=== PATIENT | male | born 1955 | race Caucasian/White ===

== ENCOUNTER → 2018-04-17 | Outpatient (CLI) | payer OTHER ==
--- NOTE | 2018-04-17 15:47 | REP ---
TRANSRECTAL ULTRASOUND PROSTATE WITH ULTRASOUND GUIDANCE FOR PROSTATE BIOPSY: Real-time sonographic evaluation of the prostate was performed. Transrectal probe was utilized. Size of the gland is 4.0 x 3.1 x 4.3 cm for a total volume of 27.3 mL. There appears to be a right side nodule 5 mm in diameter. Seminal vesicles are unremarkable. Ultrasound guidance is provided for Dr. Hernandez who performed ultrasound guided biopsy of the prostate. Electronically Signed by Artie Beck MD 04/17/2018 04:24 P
== END ==
LOC: M SMT PRO 13:04
PROVIDERS: ATTEND Urology
DX: C61 Malignant neoplasm of prostate (principal)
CPT/HCPCS: 76872; 76942; G0416

== ENCOUNTER → 2018-05-11 | Outpatient (CLI) | payer OTHER ==
[~2018-05-11] MED LIST: ISOVUE-370 76% 100ML VIAL (Q9967) As Ordered ONE
--- NOTE | 2018-05-11 10:09 | REP ---
Clinical: Prostate cancer. Technique: Axial contrast enhanced images from the lung bases to the pubic symphysis using 100 ml Isovue 370 intravenous contrast material with coronal and sagittal re-formations. Comparison: None. Findings: Lung bases are clear. Fatty infiltration to the liver suggested without focal hepatic lesion identified. Spleen, pancreas, gallbladder, bilateral adrenal glands are normal. Kidneys demonstrate age-related cortical thinning and benign lobulations without hydronephrosis or perinephric stranding. Evaluation of the enteric system demonstrates small hiatal hernia at the gastroesophageal junction. There is no evidence for bowel obstruction or acute inflammatory process. Scattered sigmoid diverticula noted without acute diverticulitis. The bladder is collapsed and grossly unremarkable. Prostate gland is heterogeneous with calcifications and scattered low density nodular changes. A few pelvic sidewall lymph nodes are identified measuring up to approximately 10 mm. No pelvic fluid or ascites. No significant intraperitoneal or retroperitoneal adenopathy. No free air. Abdominal aorta demonstrates atherosclerotic changes without aneurysm or dissection. The osseous structures demonstrate presumed moderate to advanced degenerative changes including bridging osteophytes at the right sacroiliac joint. Impression: 1. Heterogeneous appearance to the prostate gland with hypodense nodular changes. A few pelvic sidewall lymph nodes are identified measuring up to 10 mm and are nonspecific. 2. Presumed moderate to advanced degenerative osseous changes without obvious focal lytic or blastic/sclerotic lesions identified 3. Chronic-appearing changes as noted above. Electronically Signed by Rock Taylor MD 05/11/2018 10:01 A
--- NOTE | 2018-05-11 14:19 | REP ---
WHOLE BODY BONE SCAN: Following the intravenous administration of 21.5 mCi of technetium-99m MDP, patient's whole body is imaged in the anterior and posterior projections with additional oblique and lateral views obtained. Increased uptake is seen in the proximal left humerus asymmetrically. Differential diagnosis would include a bone lesion or uptake from prior trauma. There appears to be arthritic uptake at both shoulders, at the sternoclavicular joints, and scattered throughout the spine. There is arthritic uptake in the bilateral knees. There is no other compelling scintigraphic evidence of osseous metastases. Renal and bladder activity are seen. IMPRESSION: Increased uptake in the proximal left humerus predominantly in the proximal humeral shaft. This could be due to prior trauma, but a metastatic lesion could not be excluded. There are other areas of scattered arthritic uptake with no other compelling scintigraphic evidence of osseous metastases. Electronically Signed by Artie Beck MD 05/11/2018 04:03 P
== END ==
LOC: M RAD 09:21
PROVIDERS: ATTEND Urology
DX: C61 Malignant neoplasm of prostate (principal)
CPT/HCPCS: 74177; Q9967

== ENCOUNTER → 2018-05-17 | Outpatient (CLI) | payer OTHER ==
--- NOTE | 2018-05-18 01:27 | REP ---
Clinical: Prostate cancer. Technique: AP and lateral views of the left humerus. Findings: Mottled sclerotic changes are identified within the proximal humeral shaft. Without the given history of prostate cancer, differential diagnosis would include enchondroma and possible prior area of infarction. However given the patient's history of metastatic disease cannot definitively be excluded. Remainder examination demonstrates age-related changes. No acute fracture dislocation. Impression: Somewhat mottled sclerotic changes within the medullary cavity of the proximal humerus. Differential diagnosis includes but is not limited to enchondroma, old bony infarction, and metastatic disease. Electronically Signed by Rock Taylor MD 05/18/2018 01:19 A
== END ==
LOC: M SMT 13:47
PROVIDERS: ATTEND Urology
DX: C61 Malignant neoplasm of prostate (principal)

== ENCOUNTER → 2018-07-10 | Outpatient (CLI) | payer OTHER, SELFPAY ==
--- NOTE | 2018-07-11 10:47 | RADONC ---
RADIATION ONCOLOGY CONSULTATION NOTE DATE: 07/10/2018 CHART NUMBER: [id number] DIAGNOSIS: Prostate cancer. STAGE II C, T2b, N0, M0, Selene score 8 (4-4), grade group 4, PSA 13.79. ECOG PERFORMANCE STATUS: 0 CONSULTATION NOTE: Mr. Spann is a very pleasant 63-year-old white male with the diagnosis of what appears to be a stage II B, T2b, NO, MO poorly differentiated Sutherlin score 8 (4-4) adenocarcinoma of the prostate with a PSA level of 13.79 who is presenting to us today for consideration of definitive external beam radiation therapy with IMRT/IGRT. HISTORY OF PRESENT ILLNESS: The patient was in his usual state of health until routine PSA was done on 03/12/2018 and found to be 13.79. On 04/17/2018, the patient underwent prostatic needle biopsy and pathology revealed a Sutherlin score 8 (4-4) adenocarcinoma involving the right side. The patient has undergone initiation of hormonal therapy and is scheduled for placement of his fiducial markers in 2 weeks. He is now presenting for discussion of external beam radiation therapy. PAST MEDICAL HISTORY: The patient's past medical history is positive for diabetes. He had an umbilical hernia repair done and has a deviated septum. ALLERGIES: The patient has NO KNOWN DRUG ALLERGIES. SOCIAL HISTORY: The patient does not smoke cigarettes nor abuse alcohol. FAMILY HISTORY: The patient's family history is positive for a paternal uncle with some type of malignancy. REVIEW OF SYSTEMS: The patient's review of systems is positive for some headaches as well as urinary frequency. He also reports impotence. The remainder of the review of systems is noncontributory. He denies nausea, vomiting, fevers, chills, night sweats, diplopia, anxiety or depression, anorexia, weight loss, visual disturbances, chest pain, urinary or bowel difficulties, bone pain, or neurological problems. PHYSICAL EXAMINATION: The patient is a well-developed, well-nourished male in no acute distress. HEENT exam is normocephalic, atraumatic. Extraocular movements are intact. There is no palpable cervical, supraclavicular, infraclavicular, axillary, or inguinal lymphadenopathy present. Lungs are clear to auscultation and percussion. Heart has a regular rate and rhythm. Abdomen is benign with no hepatosplenomegaly, masses, or tenderness. Rectal examination reveals a normal anal sphincter tone. His prostate is smooth with no evidence of nodularity. Skeletal examination reveals no tenderness to pressure or percussion of the bony skeleton. Extremities reveal no clubbing, cyanosis, or edema. Neurologic exam is grossly intact, as is the remainder of the physical examination. MEDICAL NECESSITY: IMRT/IGRT is clinically indicated for the highly conformal dose planning required. The target volume is in close proximity to critical structures, such as the rectum, bladder, small bowel, and femoral heads. The volume of interest must be covered with narrow margins to adequately protect immediately adjacent structures. The plan requires interpretation of complex testing such as CT localization. As noted above, special planning (IMRT) and localizing (IGRT) is required and essential to maximally protect sensitive normal tissue structures which cannot be accomplished using conventional 3-dimensional planning. ASSESSMENT: Clearly the patient is a candidate for external beam radiation therapy and I have so informed him. I have discussed with the patient in detail the potential benefits as well as possible acute and chronic sequelae of external beam radiation therapy. We have discussed logistics of treatment planning, simulation and subsequent fractionated daily radiation treatments. In addition, I discussed with the patient alternate treatment such as surgery. The patient has already decided and does not wish to undergo surgery. We did talk about the benefits and drawbacks of each treatment modality. I am scheduling the patient for initiation of treatment planning approximately 2 weeks post placement of fiducial markers. Radiation treatments will follow subsequently. cc: MD Arun Hagan, DO
== END ==
LOC: M ONCR 14:00
PROVIDERS: ATTEND Radiology Radiation Oncology
DX: C61 Malignant neoplasm of prostate (principal); E11.9 Type 2 diabetes mellitus without complications; J34.2 Deviated nasal septum; R51 Headache; R35.0 Frequency of micturition

== ENCOUNTER → 2018-07-13 | Outpatient (CLI) | payer OTHER ==
[2018-07-13 15:08] LABS: BASO % 0.8 % (0.0-1.0); EOS # 0.2 10^3/uL (0.0-0.50); EOS % 4.7 % (0.0-3.0); HEMOGLOBIN 11.9 g/dl (13.5-17.5); LYMPH # 1.6 10^3/uL (1.5-4.5); LYMPH % 32.8 % (24.0-44.0); MEAN CORPUSCULAR HEMOGLOBIN 29.1 pg (27.0-33.0); MEAN CORPUSCULAR HGB CONC 32.2 g/dl (32.0-36.5); MEAN CORPUSCULAR VOLUME 90.5 fl (80.0-96.0); MONO # 0.4 10^3/uL (0.0-0.8); MONO % 7.5 % (0.0-5.0); NEUTROPHILS # 2.7 10^3/uL (1.8-7.7); NEUTROPHILS % 54.2 % (36.0-66.0); PLATELET COUNT, AUTOMATED 207 10^3/uL (150-450); RED BLOOD COUNT 4.09 10^6/uL (4.30-6.10); WHITE BLOOD COUNT 4.9 10^3/uL (4.0-10.0)
[2018-07-13 15:31] LABS: ALBUMIN 3.7 GM/DL (3.2-5.2); ALT/SGPT 23 U/L (12-78); BILIRUBIN,DIRECT 0.2 MG/DL (0.0-0.2); BILIRUBIN,TOTAL 0.6 MG/DL (0.2-1.0); BLOOD UREA NITROGEN 15 MG/DL (7-18); CALCIUM LEVEL 10.3 MG/DL (8.8-10.2); CARBON DIOXIDE LEVEL 29 MEQ/L (21-32); CHLORIDE LEVEL 99 MEQ/L (98-107); GLOMERULAR FILTRATION RATE > 60.0 (>49); GLUCOSE, FASTING 298 MG/DL (70-100); PHOSPHORUS LEVEL 3.2 MG/DL (2.5-4.9); POTASSIUM SERUM 4.4 MEQ/L (3.5-5.1); SODIUM LEVEL 135 MEQ/L (136-145); TOTAL PROTEIN 7.1 GM/DL (6.4-8.2)
[2018-07-13 19:28] LABS: CHLAMYDIA DNA AMPLIFICATION NEGATIVE (NEGATIVE); GC DNA AMPLIFICATION NEGATIVE (NEGATIVE)
== END ==
LOC: M WUC 14:04
PROVIDERS: ATTEND Physician Assistant
DX: R30.0 Dysuria (principal); N45.1 Epididymitis

== ENCOUNTER → 2018-07-23 | Outpatient (REF) | payer OTHER ==
[~2018-07-23] MED LIST changes: +ATEN25TA PO; +EXCETAB33 PO; +FENO145T13 PO; +FLOM0.4C39 PO; +GLIM4TAB PO; -ISOVUE-370 76% 100ML VIAL (Q9967) As Ordered ONE; +METF500T4 PO; +OMEP40CA2 PO; +SIMV40TA2 PO
== END ==
LOC: M LAB REF 17:19
PROVIDERS: ATTEND Urology
DX: N50.89 Other specified disorders of the male genital organs (principal); N39.0 Urinary tract infection, site not specified

== ENCOUNTER → 2018-07-23 | Outpatient (CLI) | payer OTHER ==
--- NOTE | 2018-07-23 16:29 | REP ---
SCROTAL SONOGRAPHY: HISTORY: Left testicular swelling. Testicular pain. FINDINGS: High-resolution bilateral scrotal sonography demonstrates no evidence of intratesticular mass lesion on either side. There is a moderate sized left-sided hydrocele. There is some scrotal wall edema. The testis on the left is displaced somewhat posteriorly by a scrotal wall complex fluid collection consistent with an abscess. This complex collection measures 5.8 x 2.6 x 5.4 cm. No intratesticular abscess is seen. The epididymides are bilaterally somewhat hyperemic, question epididymitis. Testicular Doppler flow is normal. Resistive indices are 0.70 on the right and 0.51 on the left. Right testis measures 3.6 x 1.9 x 2.1 cm. Left testicular dimensions are 3.3 x 2.0 x 2.3 cm. IMPRESSION: Complex hypoechoic fluid collection in the left scrotal wall consistent with abscess, 5.8 cm in greatest diameter. This displaces the left testis posteriorly. No intratesticular lesion is seen. Left-sided hydrocele is noted. Somewhat hyperemic epididymides are noted bilaterally. Electronically Signed by Ramesh Levin MD 07/23/2018 05:00 P
== END ==
LOC: M RAD 15:12
PROVIDERS: ATTEND Urology
DX: N50.89 Other specified disorders of the male genital organs (principal)

== ENCOUNTER 2018-07-24 14:57 | Day surgery (SDC) | payer OTHER ==
[~2018-07-24] VITALS: Ht 170.2 cm; Wt 97.5 kg
[~2018-07-24 14:57] MED LIST changes: -ATEN25TA PO; +BACITRACIN OINT 30GM As Ordered ONE; +BUPIVACAINE HCL 0.25% 30 ML VIAL As Ordered ONE; -EXCETAB33 PO; -FENO145T13 PO; -FLOM0.4C39 PO; -GLIM4TAB PO; -METF500T4 PO; -OMEP40CA2 PO; -SIMV40TA2 PO
[2018-07-24] MEDS ORDERED: ATEN25TA PO (16:12)
[2018-07-24] MEDS ORDERED: SIMV40TA2 PO (16:12)
[2018-07-24] MEDS ORDERED: FENO145T13 PO (16:12)
[2018-07-24] MEDS ORDERED: EXCETAB33 PO (16:12)
[2018-07-24] MEDS ORDERED: OMEP40CA2 PO (16:12)
[2018-07-24] MEDS ORDERED: GLIM4TAB PO (16:12)
[2018-07-24] MEDS ORDERED: FLOM0.4C39 PO (16:12)
[2018-07-24] MEDS ORDERED: METF500T4 PO (16:12)
[2018-07-24] MEDS ORDERED: METOCLOPRAMIDE INJ 10MG/2ML VIAL (J2765) As Ordered ONE (16:48)
[2018-07-24] MEDS ORDERED: MIDAZOLAM INJ 2 MG/2 ML VIAL (J2250) As Ordered ONE (16:48)
[2018-07-24] MEDS ORDERED: PROPOFOL 200 MG/20 ML VIAL As Ordered ONE (16:48)
[2018-07-24] MEDS ORDERED: LIDOCAINE 2% INJ 100 MG/5 ML SDV (FOR ANES.) As Ordered ONE (16:48)
[2018-07-24] MEDS ORDERED: fentaNYL 100 MCG/2 ML INJECTION (J3010) As Ordered ONE ×2 (16:48→17:31)
[2018-07-24] MEDS ORDERED: ONDANSETRON 4MG/2ML VIAL (J2405) As Ordered ONE (16:48)
[2018-07-24] MEDS ORDERED: ceFAZolin 2 GM/D5W 50 ML IV BAG (J0690 PER 500MG) As Ordered ONE (16:56)
[2018-07-24] MEDS ORDERED: LR 1,000 ML IV ONE (17:15)
[2018-07-24] MEDS ORDERED: ePHEDrine SULFATE 25 MG/5 ML(5MG/ML) SYRINGE As Ordered ONE (17:37)
[2018-07-24] MEDS ORDERED: fentaNYL 100 MCG/2 ML INJECTION (J3010) IV PRN (18:15)
[2018-07-24] MEDS ORDERED: LR 1,000 ML IV SCH (18:15)
[2018-07-24] MEDS ORDERED: ONDANSETRON 4MG/2ML VIAL (J2405) IV PRN (18:15)
[2018-07-24] MEDS ORDERED: MEPERIDINE INJ 25 MG/ML VIAL (J2175) IV PRN (18:15)
[2018-07-24] MEDS ORDERED: PERCOCET 5MG/325MG TAB PO PRN ×3 (18:15)
[2018-07-24] MEDS ORDERED: METOCLOPRAMIDE INJ 10MG/2ML VIAL (J2765) IV PRN (18:15)
--- NOTE | 2018-07-24 19:05 | RO ---
DATE OF PROCEDURE: 07/24/2018 PREPROCEDURE DIAGNOSIS: Left scrotal abscess. POSTPROCEDURE DIAGNOSIS: Left scrotal abscess. PROCEDURE: Incision and drainage of left scrotal abscess. SURGEON: Bryant Hernandez MD VAULT PERSON: None. ANESTHESIA: General. OPERATIVE INDICATIONS: This is a 63-year-old male who is known to our practice as he has been treated for prostate cancer. He recently was found to have left scrotal swelling and ultrasound was notable for approximately a 6 cm scrotal abscess. He was brought to the operating room today for treatment for this. DESCRIPTION OF PROCEDURE: The patient was brought to the operating room and general anesthesia was induced. Prophylactic antibiotics were infused. He was then placed in the supine position and prepped and draped in the usual sterile fashion. At this point, an approximately 3 cm transverse incision was made over the left hemiscrotum. This was taken down through the scrotal wall until there was immediate drainage of purulent material. Cultures were obtained from this to be sent for aerobic and anaerobic cultures. Once all of the pus had drained out, I put my finger in the abscess cavity to make sure that there were no loculations to be broken up. Once that was done, I thoroughly irrigated the abscess cavity with normal saline. Once that was done, hemostasis was obtained using electrocautery. I then inserted a [place] drain into the abscess cavity and stitched it to the skin using an #0 silk suture. Once that was done, dressings were applied and this marked the conclusion of the procedure. The patient was then awakened from anesthesia and transported to the recovery room in stable condition. Estimated blood loss was 5 mL. Complications: None. Specimens: Cultures of the left scrotal abscess. PLAN: The patient will followup in the clinic in a few days for [place] drain removal. I will keep him on antibiotics for 14 days.
[2018-07-24 20:00] VITALS: BP 142/77
== END 2018-07-24 20:20 | disposition home or self-care (01) ==
LOC: M SDC 14:57
PROVIDERS: ATTEND Urology
DX: N49.2 Inflammatory disorders of scrotum (principal); B96.20 Unspecified Escherichia coli [E. coli] as the cause of diseases classified elsewhere; I10 Essential (primary) hypertension; E11.9 Type 2 diabetes mellitus without complications; Z79.84 Long term (current) use of oral hypoglycemic drugs; Z79.899 Other long term (current) drug therapy; K21.9 Gastro-esophageal reflux disease without esophagitis; Z85.46 Personal history of malignant neoplasm of prostate
CPT/HCPCS: 55100; 87070; 87075; 87077; 87186; 87205; J0690; J2250; J2405; J2765; J3010

== ENCOUNTER → 2018-07-24 | Outpatient (CLI) | payer OTHER ==
[2018-07-24 15:06] LABS: HEMATOCRIT 36.6 % (42.0-52.0); HEMOGLOBIN 12.2 g/dl (13.5-17.5); MEAN CORPUSCULAR HEMOGLOBIN 29.8 pg (27.0-33.0); MEAN CORPUSCULAR HGB CONC 33.3 g/dl (32.0-36.5); MEAN CORPUSCULAR VOLUME 89.5 fl (80.0-96.0); PLATELET COUNT, AUTOMATED 217 10^3/uL (150-450); RED BLOOD COUNT 4.09 10^6/uL (4.30-6.10); WHITE BLOOD COUNT 7.3 10^3/uL (4.0-10.0)
[2018-07-24 15:17] LABS: INR 1.04; PROTHROMBIN TIME 13.7 SECONDS (12.1-14.4)
[2018-07-24 15:18] LABS: PARTIAL THROMBOPLASTIN TIME 28.6 SECONDS (25.4-37.6)
[2018-07-24 15:28] LABS: BLOOD UREA NITROGEN 12 MG/DL (7-18); CALCIUM LEVEL 9.8 MG/DL (8.8-10.2); CARBON DIOXIDE LEVEL 28 MEQ/L (21-32); CHLORIDE LEVEL 102 MEQ/L (98-107); CREATININE FOR GFR 0.86 MG/DL (0.70-1.30); GLOMERULAR FILTRATION RATE > 60.0 (>49); GLUCOSE, FASTING 188 MG/DL (70-100); POTASSIUM SERUM 4.3 MEQ/L (3.5-5.1); SODIUM LEVEL 136 MEQ/L (136-145)
== END ==
LOC: M LAB 14:28
PROVIDERS: ATTEND Urology
DX: Z01.818 Encounter for other preprocedural examination (principal); N49.2 Inflammatory disorders of scrotum

== ENCOUNTER → 2018-08-21 | Outpatient (CLI) | payer OTHER ==
[~2018-08-21] MED LIST changes: +ATEN25TA PO; -BACITRACIN OINT 30GM As Ordered ONE; -BUPIVACAINE HCL 0.25% 30 ML VIAL As Ordered ONE; +EXCETAB33 PO; +FENO145T13 PO; +FLOM0.4C39 PO; +GLIM4TAB PO; +METF500T4 PO; +OMEP40CA2 PO; +SIMV40TA2 PO
--- NOTE | 2018-08-21 12:47 | REP ---
Transrectal prostate sonography guidance: History: Prostate cancer. Findings: Transrectal sonographic guidance is provided to Dr. Hernandez who performed fiducial marker placement. Electronically Signed by Ramesh Levin MD 08/21/2018 05:23 P
== END ==
LOC: M SMT PRO 09:46
PROVIDERS: ATTEND Urology
DX: C61 Malignant neoplasm of prostate (principal)

== ENCOUNTER 2018-09-05 10:59 | Outpatient (RCR) | payer OTHER ==
--- NOTE | 2018-09-05 13:56 | RADONC ---
RADIATION ONCOLOGY SIMULATION NOTE DATE: 09/05/2018 CHART NUMBER: [id number] SIMULATION NOTE: Mr. Spann was taken to the CT scan for CT simulation of his prostate field. CT was accomplished without difficulty or discomfort. Radiation treatment planning is underway and radiation treatments will begin subsequently. An immobilization device was created without difficulty or discomfort. It will be used throughout the course of treatment. I was physically present throughout the course of CT simulation.
== END 2018-09-07 ==
LOC: M ONCR 10:59
PROVIDERS: ATTEND Radiology Radiation Oncology
DX: C61 Malignant neoplasm of prostate (principal)

== ENCOUNTER 2018-10-05 09:39 | Outpatient (RCR) | payer OTHER ==
--- NOTE | 2018-09-18 06:45 | RADONC ---
RADIATION ONCOLOGY PROGRESS NOTE DATE: 09/17/2018 CHART NUMBER: [id number] Mr. Spann is presently dose of 540 cGy to his prostate and is tolerating treatments quite well at this point with no complaints related to his radiation therapy. He is having no urinary or bowel difficulties, and no bone pain. REVIEW OF SYSTEMS: The patient's review of systems is noncontributory. He denies nausea, vomiting, fevers, chills, night sweats, diplopia, headaches, anxiety or depression, anorexia, weight loss, visual disturbances, chest pain, urinary or bowel difficulties, bone pain or neurological problems. PHYSICAL EXAMINATION: The patient's skin is in good condition with no evidence of moist or dry desquamation. The remainder of his physical exam remains unchanged. Mr. Spann is tolerating treatments quite well and radiation will continue as scheduled.
--- NOTE | 2018-09-25 07:16 | RADONC ---
RADIATION ONCOLOGY PROGRESS NOTE DATE: 09/24/2018 CHART #: [id number] Mr. Spann is presently at a dose of 1440 cGy to his prostate and is tolerating treatments quite well at this point with no complaints related to his radiation therapy. He is having no urinary or bowel difficulties and no bone pain. REVIEW OF SYSTEMS: The patient's review of systems is noncontributory. Denies nausea, vomiting, fevers, chills, night sweats, diplopia, headaches, anxiety or depression, anorexia, weight loss, visual disturbances, chest pain, urinary or bowel difficulties, bone pain, or neurological problems. PHYSICAL EXAMINATION: The patient's skin is in good condition with no evidence of radiation change present. There is no moist or dry desquamation. The remainder of his physical exam remains unchanged. Mr. Spann is tolerating treatments quite well and radiation will continue as scheduled.
--- NOTE | 2018-10-02 10:10 | RADONC ---
RADIATION ONCOLOGY PROGRESS NOTE DATE: 10/01/2018 CHART NUMBER: [id number] Mr. Spann with a diagnosis of adenocarcinoma of prostate is currently receiving local regional radiotherapy. He reports no specific complaints referable to his disease or to his treatments. His current dose is 2340 cGy of an anticipated 7920 cGy. REVIEW OF SYSTEMS: He specifically denies any nausea, vomiting, or significant diarrhea, dysuria, hematuria or blood per rectum. He was having some loose stools and the nurse has given him a pamphlet on a low residue diet which I feel he should follow. His energy level is such that he is able to maintain most day-to-day activities without any alteration of his lifestyle. No skin irritation is reported. The remainder of the review of systems is unchanged. EXAMINATION FINDINGS: Skin within the irradiated volume looks normal. The remainder of the physical examination is unchanged. IMPRESSION: Tolerating therapy well. PLAN: Treatments to continue.
== END 2018-10-07 ==
LOC: M ONCR 09:39
PROVIDERS: ATTEND Radiology Radiation Oncology
DX: C61 Malignant neoplasm of prostate (principal)

== ENCOUNTER → 2018-11-07 | Outpatient (RCR) | payer OTHER ==
--- NOTE | 2018-10-08 12:03 | RADONC ---
RADIATION ONCOLOGY PROGRESS NOTE DATE: 10/08/2018 CHART #: [id number] Mr. Spann with a diagnosis of prostate cancer is currently receiving local regional radiotherapy and his dose to date is 3240 cGy of an anticipated 7920 cGy. There are no complaints referable to his disease or to his treatments. REVIEW OF SYSTEMS: The patient denies any nausea, vomiting, diarrhea, dysuria, hematuria or blood per rectum. His energy level is excellent and he is able to maintain most day-to-day activities without any alteration of his lifestyle. Skin irritation is denied. The remainder of the review of systems is unchanged. EXAMINATION FINDINGS: The skin within the irradiated volume shows no evidence of erythema and certainly no focal desquamation. No palpable peripheral lymphadenopathy is appreciated in the cervical, supraclavicular, axillary or inguinal lymph node chains. The remainder of the physical examination is unchanged. IMPRESSION: Tolerating therapy well. PLAN: Treatments to continue. MTDD
--- NOTE | 2018-10-15 11:15 | RADONC ---
RADIATION ONCOLOGY PROGRESS NOTE DATE: 10/15/2018 CHART NUMBER: [id number] Mr. Spann is presently at a dose of 3600 cGy to his prostate and is tolerating treatments quite well at this point with no complaints related to his radiation therapy. He is having no urinary or bowel difficulties and no bone pain. The patient's review of systems is noncontributory. He denies nausea, vomiting, fevers, chills, night sweats, diplopia, headaches, anxiety or depression, anorexia, weight loss, visual disturbances, chest pain, urinary or bowel difficulties, bone pain, or neurological problems. PHYSICAL EXAMINATION: The patient's skin is in good condition with no evidence of radiation change present. There is no moist or dry desquamation. The remainder of his physical exam remains unchanged. Radiation is well tolerated and will continue as scheduled.
--- NOTE | 2018-10-22 14:52 | RADONC ---
RADIATION ONCOLOGY PROGRESS NOTE DATE: 10/22/2018 CHART NUMBER: [id number] Mr. Spann is presently at a dose of 4680 cGy to his prostate and is tolerating his treatments fairly well although he is complaining of urinary frequency. He says he urinates every hour. He does not have any new or unusual burning or discomfort with urination. He has no bowel symptoms or other problems. REVIEW OF SYSTEMS: The patient's review of systems is positive for urinary frequency, but is otherwise noncontributory. He denies nausea, vomiting, fevers, chills, night sweats, diplopia, headaches, anxiety or depression, anorexia, weight loss, visual disturbances, chest pain, urinary or bowel difficulties, bone pain or neurological problems. PHYSICAL EXAMINATION: The patient's skin is in good condition with no evidence of radiation change present. There is no moist or dry desquamation. The remainder of his physical exam remains unchanged. Mr. Spann is tolerating treatments quite well and radiation will continue as scheduled. I recommended that the patient drink more fluids, maybe including cranberry juice, and I have recommended the use of Pyridium. We will continue to follow him this week and if necessary can give him a short treatment break as well.
--- NOTE | 2018-10-31 06:52 | RADONC ---
RADIATION ONCOLOGY PROGRESS NOTE DATE: 10/30/2018 CHART #: [id number] Mr. Spann is presently at a dose of 5580 cGy to his prostate and is tolerating treatments quite well at this point with no significant difficulties related to his radiation therapy other than urinary and bowel frequency. REVIEW OF SYSTEMS: The patient's review of systems is positive for is frequent bathroom visits but is otherwise generally noncontributory. Denies nausea, vomiting, fevers, chills, night sweats, diplopia, headaches, anxiety or depression, anorexia, weight loss, visual disturbances, chest pain, urinary or bowel difficulties, bone pain, or neurological problems. PHYSICAL EXAMINATION: The patient's skin is in good condition with no evidence of moist or dry desquamation. The remainder of his physical exam remains unchanged. Mr. Spann is tolerating his treatments quite well and radiation will continue as scheduled.
--- NOTE | 2018-11-06 08:27 | RADONC ---
RADIATION ONCOLOGY PROGRESS NOTE DATE: 11/05/2018 Chart #: [id number] Mr. Spann is presently at a dose of 6480 cGy to his prostate and is tolerating treatments quite well at this point with no complaints related to his radiation therapy. He is having no significant urinary or bowel difficulties at this time. He did have some GI upset this weekend. REVIEW OF SYSTEMS: The patient's review of systems is positive for bowel issues with loose bowel movements but is otherwise noncontributory. Denies nausea, vomiting, fevers, chills, night sweats, diplopia, headaches, anxiety or depression, anorexia, weight loss, visual disturbances, chest pain, urinary or bowel difficulties, bone pain, or neurological problems. PHYSICAL EXAMINATION: The patient's skin is in good condition with no evidence of moist or dry desquamation. The remainder of his physical exam remains unchanged. Mr. Spann is tolerating treatments quite well and radiation will continue as scheduled.
[~2018-11-07] MED LIST changes: -FENO145T13 PO; +FENO145T7 PO; -GLIM4TAB PO; +GLIM4TAB5 PO; +METF-791 PO; -METF500T4 PO; -OMEP40CA2 PO; +OMEP40CA97 PO; -SIMV40TA2 PO; +SIMV40TA20 PO
== END ==
LOC: M ONCR 10-08 09:32
PROVIDERS: ATTEND Radiology Radiation Oncology
DX: C61 Malignant neoplasm of prostate (principal)

== ENCOUNTER 2018-11-15 09:39 | Outpatient (RCR) | payer OTHER ==
--- NOTE | 2018-11-12 10:29 | RADONC ---
RADIATION ONCOLOGY PROGRESS NOTE DATE OF SERVICE: 11/12/2018 DIAGNOSIS: Adenocarcinoma of the prostate. PROGRESS NOTE: Mr. Spann with a diagnosis of adenocarcinoma of the prostate is currently receiving local regional radiotherapy. His current dose is 7380 cGy of an anticipated 7920 cGy. He is tolerating his radiotherapy reasonably well, although he does have some issues with dysuria and frequency. His energy level is satisfactory. REVIEW OF SYSTEMS: He denies any nausea, vomiting, diarrhea. He does have some dysuria but denies blood per rectum or blood in the urine. His energy level is satisfactory, and he is able to maintain many day-to-day activities. He has only three more treatments to go to complete his entire prescribed dose of radiotherapy. The remainder of the review of systems is unchanged. EXAMINATION FINDINGS: No significant skin changes. Lymphatics: No palpable peripheral lymphadenopathy is appreciated. The remainder of the physical examination is unchanged. IMPRESSION: Tolerating therapy well with three more treatments to go to complete his entire prescribed dose of radiotherapy at 7920 cGy. Treatments to continue.
--- NOTE | 2018-11-19 09:15 | RADONC ---
RADIATION ONCOLOGY THERAPY TREATMENT SUMMARY NOTE: DATE: 11/15/2018 CHART NUMBER: [id number]. DIAGNOSIS: Prostate cancer. STAGE: II C, T2b, N0, M0, Selene score 8 (4+ 4), grade group 4, PSA 13.79. ECOG PERFORMANCE STATUS: 0 PLAN OF RADIOTHERAPY: Local regional radiotherapy for local regional control. RADIOTHERAPY STARTED: The radiotherapy started September 2018. RADIOTHERAPY COMPLETED: 11/15/2018 DOSE: The patient received a total of 7927 cGy administered in 44 fractions over 63 elapsed days. Prior to treatment delivery localization was accomplished upon our CT simulator and treatment portals defined by the use of multiple leaf collimators. The initial 45 cGy was administered to PTB1 including seminal vesicles prostate and lymphatic drainage sites. Thereafter, an additional 900 cGy were administered with reduced treatment portals to the prostate and seminal vesicles. A further reduction of an additional 2020 cGy were given to the prostate itself bringing the total dose to 7920 cGy. The treatments was treated at isocenter via IMRT/ IGRT with a 6 MV photon beam. STATUS OF TUMOR: There was neither evidence clinically of local regional progression during his course of radiotherapy or clinical evidence of distant metastatic spread. Tolerance: In general, he tolerated his therapy quite well with no significant untoward side effects denying any nausea, vomiting, diarrhea, dysuria, hematuria or blood per rectum. His energy level remained relatively constant and he was able to maintain most day-to-day activities without any alteration of his lifestyle. DISPOSITION: He was instructed to return to our clinic in approximately 1 month. He was also instructed to return to his referring physicians as per their directions and instructions. cc: MD Arun Hagan,
== END 2018-12-08 ==
LOC: M ONCR 09:39
PROVIDERS: ATTEND Radiology Radiation Oncology
DX: C61 Malignant neoplasm of prostate (principal)

== ENCOUNTER → 2018-12-11 | Outpatient (CLI) | payer OTHER ==
[~2018-12-11] MED LIST changes: +FENO145T13 PO; -FENO145T7 PO; +GLIM4TAB PO; -GLIM4TAB5 PO; +OMEP40CA2 PO; -OMEP40CA97 PO; +SIMV40TA2 PO; -SIMV40TA20 PO
== END ==
LOC: M LAB 09:57
PROVIDERS: ATTEND Radiology Radiation Oncology
DX: C61 Malignant neoplasm of prostate (principal)

== ENCOUNTER → 2018-12-12 | Outpatient (CLI) | payer OTHER ==
--- NOTE | 2018-12-13 09:05 | RADONC ---
RADIATION ONCOLOGY FOLLOWUP NOTE: DATE OF SERVICE: 12/12/2018 DIAGNOSIS: Adenocarcinoma of the prostate. PROGRESS NOTE: Mr. Spann with the diagnosis of adenocarcinoma of the prostate completed his definitive local regional radiotherapy on 11/15/2018. Since this time, he has been recuperating very nicely. He denies any specific nausea, vomiting, diarrhea, dysuria, hematuria or blood per rectum. He still has sometimes episodes when he has urinated and feels that he still needs to complete his urination and then 20-30 minutes later he will have some urine leak from his urethra. This is not an ongoing every day process. However, it has occurred several times and he is brought this to my attention. He feels that this tendency is decreasing overall. REVIEW OF SYSTEMS: He denies any nausea, vomiting, diarrhea, dysuria, hematuria or blood per rectum. His energy level is such and he is able to maintain most day-to-day activities which are normal for him. Skin irritation is denied. The remainder review of systems is unchanged. EXAMINATION FINDINGS: Skin within the irradiated volume shows neither erythema nor desquamation. Lymphatics: No palpable peripheral lymphadenopathy is appreciated in the cervical, supraclavicular, axillary or inguinal lymph node chains. Lungs are clear. Heart: Regular. Abdomen: Without evidence of hepatomegaly, masses, deep abdominal tenderness. Rectal was not performed at the patient's request because his PSA values are so low. Neurologic examination: Grossly physiologic. IMPRESSION: No clinical evidence of disease recurrence. PLAN: We will see him on a p.r.n. basis and he was advised to return to his referring physicians as per their directions and instructions. cc: MD Arun Hagan, DO
== END ==
LOC: M ONCR 09:59
PROVIDERS: ATTEND Radiology Radiation Oncology
DX: C61 Malignant neoplasm of prostate (principal)

== ENCOUNTER → 2018-12-14 | Outpatient (REF) | payer OTHER ==
[2018-12-14 18:50] LABS: APPEARANCE, URINE CLOUDY (CLEAR); BACTERIA, URINE AUTO 2+ (NEGATIVE); BILIRUBIN, URINE AUTO NEGATIVE (NEGATIVE); BLOOD, URINE BLOOD 2+ (NEGATIVE); COLOR, URINE YELLOW (YELLOW); GLUCOSE, URINE (UA) AUTO 3+ mg/dL (NEGATIVE); KETONE, URINE AUTO NEGATIVE (NEGATIVE); LEUKOCYTE ESTERASE, URINE AUTO 2+ (NEGATIVE); MUCUS, URINE SMALL (NEGATIVE); NITRITE, URINE AUTO NEGATIVE (NEGATIVE); PROTEIN, URINE AUTO 2+ mg/dL (NEGATIVE); RBC, URINE AUTO 79 /HPF (0-3); SPECIFIC GRAVITY URINE AUTO 1.018 (1.002-1.035); SQUAMOUS EPITHELIAL CELL UR AU 0 /HPF (0-6); UROBILINOGEN, URINE AUTO 0.2 mg/dL (0.0-2.0); WBC, URINE AUTO TNTC /HPF (0-3)
== END ==
LOC: M SMT 16:50
PROVIDERS: ATTEND Nurse Practitioner Family
DX: R39.198 Other difficulties with micturition (principal)

== ENCOUNTER → 2019-05-02 | Outpatient (CLI) | payer OTHER ==
[~2019-05-02] MED LIST changes: -FENO145T13 PO; +FENO145T7 PO; -GLIM4TAB PO; +GLIM4TAB5 PO; -OMEP40CA2 PO; +OMEP40CA97 PO; -SIMV40TA2 PO; +SIMV40TA20 PO
[2019-05-02 11:48] LABS: BASO % 0.9 % (0.0-1.0); EOS # 0.1 10^3/uL (0.0-0.5); EOS % 3.9 % (0.0-3.0); HEMATOCRIT 36.7 % (42.0-52.0); HEMOGLOBIN 12.1 g/dl (13.5-17.5); LYMPH # 0.6 10^3/uL (1.5-5.0); LYMPH % 19.3 % (24.0-44.0); MEAN CORPUSCULAR HEMOGLOBIN 30.3 pg (27.0-33.0); MONO # 0.3 10^3/uL (0.0-0.8); MONO % 8.5 % (0.0-5.0); NEUTROPHILS # 2.2 10^3/uL (1.5-8.5); NEUTROPHILS % 67.1 % (36.0-66.0); PLATELET COUNT, AUTOMATED 176 10^3/uL (150-450); RED BLOOD COUNT 3.99 10^6/uL (4.30-6.10); WHITE BLOOD COUNT 3.3 10^3/uL (4.0-10.0)
[2019-05-02 12:13] LABS: BLOOD UREA NITROGEN 16 MG/DL (7-18); CALCIUM LEVEL 9.8 MG/DL (8.8-10.2); CARBON DIOXIDE LEVEL 28 MEQ/L (21-32); CHLORIDE LEVEL 96 MEQ/L (98-107); CREATININE FOR GFR 1.15 MG/DL (0.70-1.30); FERRITIN 54 NG/ML (26-388); GLOMERULAR FILTRATION RATE > 60.0 (>49); GLUCOSE, FASTING 319 MG/DL (70-100); IRON (FE) 94 UG/DL (65-175); PERCENT SATURATION 23.9 % (19.7-50.0); POTASSIUM SERUM 4.7 MEQ/L (3.5-5.1); SODIUM LEVEL 134 MEQ/L (136-145); TOTAL IRON BINDING CAPACITY 394 UG/DL (250-450)
[2019-05-02 12:20] LABS: FOLATE 16.1 NG/ML; VITAMIN B12 LEVEL 399 PG/ML
== END ==
LOC: M LAB 09:49
PROVIDERS: ATTEND Internal Medicine
DX: E11.9 Type 2 diabetes mellitus without complications (principal)

== ENCOUNTER → 2019-05-03 | Outpatient (REF) | payer OTHER | LOC: M LAB REF 16:27 | PROVIDERS: ATTEND Internal Medicine | DX: D50.9 Iron deficiency anemia, unspecified (principal) ==

== ENCOUNTER → 2019-06-10 | Outpatient (CLI) | payer OTHER | LOC: M LAB 10:48 | PROVIDERS: ATTEND Urology | DX: C61 Malignant neoplasm of prostate (principal) ==

== ENCOUNTER 2019-08-06 18:45 | Emergency (ER) | payer OTHER ==
[~2019-08-06] VITALS: Ht 170.2 cm; Wt 104.7 kg
[2019-08-06 18:46] VITALS: BP 140/90
[2019-08-06] MEDS ORDERED: excedrin (18:54)
[2019-08-06] MEDS ORDERED: MAGIC MOUTHWASH SUSPENSION BTL SS STA (19:24)
[2019-08-06] MEDS ORDERED: AUGMENTIN 875 MG TAB PO ONE (19:30)
[2019-08-06] MEDS ORDERED: NORCO 5/325MG TABLET (BULK FOR ED) PO ONE (19:30)
[2019-08-06] MEDS ORDERED: HYDR-3713 PO (19:34)
[2019-08-06] MEDS ORDERED: ANBE20GE TOP (19:34)
[2019-08-06] MEDS ORDERED: MAGICMW SSP (19:34)
[2019-08-06] MEDS ORDERED: AUGM875T28 PO (19:34)
== END 2019-08-06 19:51 | disposition home or self-care (01) ==
LOC: M ED 18:45
DX: K04.6 Periapical abscess with sinus (principal); E11.9 Type 2 diabetes mellitus without complications; Z79.84 Long term (current) use of oral hypoglycemic drugs

== ENCOUNTER → 2019-08-26 | Outpatient (CLI) | payer OTHER ==
[~2019-08-26] MED LIST changes: +ANBE20GE TOP; +AUGM875T28 PO; +HYDR-3713 PO; +MAGICMW SSP; -METF-791 PO; +METF-838 PO; +excedrin
[2019-08-26 13:47] LABS: BLOOD UREA NITROGEN 17 MG/DL (7-18); CALCIUM LEVEL 9.9 MG/DL (8.8-10.2); CARBON DIOXIDE LEVEL 29 MEQ/L (21-32); CHLORIDE LEVEL 101 MEQ/L (98-107); CHOLESTEROL LEVEL 197 MG/DL (<200); CHOLESTEROL RISK RATIO 7.576 (<5); CREATININE FOR GFR 0.99 MG/DL (0.70-1.30); GLOMERULAR FILTRATION RATE > 60.0 (>49); GLUCOSE, FASTING 211 MG/DL (70-100); HDL CHOLESTEROL 26 MG/DL (>40); NON-HDL-C 171 MG/DL; POTASSIUM SERUM 4.4 MEQ/L (3.5-5.1); SODIUM LEVEL 137 MEQ/L (136-145); TRIGLYCERIDES LEVEL 938 MG/DL (<150)
[2019-08-26 15:24] LABS: HEMOGLOBIN A1c 9.8 %
== END ==
LOC: M LAB 11:58
PROVIDERS: ATTEND Internal Medicine
DX: E11.9 Type 2 diabetes mellitus without complications (principal)

== ENCOUNTER → 2019-09-05 | Outpatient (CLI) | payer OTHER ==
[~2019-09-05] MED LIST changes: +FIOR1CAP PO; +STEG5TAB PO
[2019-09-05 12:24] LABS: INR 0.98; PROTHROMBIN TIME 12.7 SECONDS (11.8-14.0)
[2019-09-05 12:25] LABS: BLOOD UREA NITROGEN 11 MG/DL (7-18); CALCIUM LEVEL 9.6 MG/DL (8.8-10.2); CARBON DIOXIDE LEVEL 27 MEQ/L (21-32); CHLORIDE LEVEL 100 MEQ/L (98-107); CREATININE FOR GFR 1.06 MG/DL (0.70-1.30); GLOMERULAR FILTRATION RATE > 60.0 (>49); GLUCOSE, FASTING 278 MG/DL (70-100); POTASSIUM SERUM 4.3 MEQ/L (3.5-5.1); PROSTATIC SPECIFIC AG MONITOR < 0.01 NG/ML (< 4.00); SODIUM LEVEL 137 MEQ/L (136-145)
[2019-09-05 12:25] LABS: PARTIAL THROMBOPLASTIN TIME 26.4 SECONDS (25.0-38.4)
[2019-09-05 12:35] LABS: HEMOGLOBIN 11.9 g/dl (13.5-17.5); MEAN CORPUSCULAR HEMOGLOBIN 30.6 pg (27.0-33.0); MEAN CORPUSCULAR HGB CONC 33.1 g/dl (32.0-36.5); MEAN CORPUSCULAR VOLUME 92.5 fl (80.0-96.0); PLATELET COUNT, AUTOMATED 168 10^3/uL (150-450); RED BLOOD COUNT 3.89 10^6/uL (4.30-6.10); WHITE BLOOD COUNT 3.5 10^3/uL (4.0-10.0)
--- NOTE | 2019-09-06 22:07 | ECGEPIP ---
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 Electronically Signed on 09-06-2019 22:06:56 EDT by Tomas Guillory
== END ==
LOC: M LAB 11:13
PROVIDERS: ATTEND Urology
DX: Z01.818 Encounter for other preprocedural examination (principal); N47.1 Phimosis; C61 Malignant neoplasm of prostate

== ENCOUNTER → 2019-09-09 | Outpatient (CLI) | payer OTHER | LOC: M LABSMTC 10:59 | PROVIDERS: ATTEND Anesthesiology | DX: Z01.818 Encounter for other preprocedural examination (principal); Z11.59 Encounter for screening for other viral diseases | CPT/HCPCS: C9803; U0003 ==

== ENCOUNTER → 2019-09-11 | Outpatient (CLI) | payer OTHER ==
--- NOTE | 2019-09-11 14:57 | REP ---
TWO-VIEW CHEST: REASON FOR EXAM: Preoperative testing. PRIORS: None. FINDINGS: The superior mediastinal structures are midline. The cardiac silhouette is unremarkable in size, shape, and position. The diaphragmatic surfaces of the lungs are regular, and the costophrenic angles are clear. The pulmonary martinez are clear. The imaged osseous structures are intact. IMPRESSION: There is no acute cardiopulmonary disease. Electronically Signed by Haroon Thompson DO 09/11/2019 03:23 P
== END ==
LOC: M RAD 12:19
PROVIDERS: ATTEND Urology
DX: Z01.818 Encounter for other preprocedural examination (principal); N47.1 Phimosis

== ENCOUNTER 2019-09-12 08:42 | Day surgery (SDC) | payer OTHER ==
[~2019-09-12] VITALS: Ht 170.2 cm; Wt 102.2 kg
[~2019-09-12 08:42] MED LIST changes: -FIOR1CAP PO; +LIDOCAINE 2% 100MG/5ML SDV (FOR ANES.) As Ordered ONE; +METOCLOPRAMIDE INJ 10MG/2ML VIAL (J2765 PER 1) As Ordered ONE; +MIDAZOLAM INJ 2MG/2ML VIAL (J2250 PER 1MG) As Ordered ONE; +ONDANSETRON 4MG/2ML VIAL As Ordered ONE; +fentaNYL 100 MCG/2 ML INJECTION (J3010) As Ordered ONE; +propofoL 200 MG/20 ML VIAL As Ordered ONE
[2019-09-12] MEDS ORDERED: BACITRACIN OINTMENT 30GM TUBE As Ordered ONE (08:57)
[2019-09-12] MEDS ORDERED: FIOR1CAP PO (09:11)
[2019-09-12] MEDS ORDERED: ceFAZolin SOD 2 GM in IV 1 EA IV ONE (09:15)
[2019-09-12] MEDS ORDERED: LR 1,000 ML IV ONE (09:45)
[2019-09-12] MEDS ORDERED: fentaNYL 100 MCG/2 ML INJECTION (J3010) As Ordered ONE (10:26)
--- NOTE | 2019-09-12 11:21 | ROOPDOC ---
[facility] Report Of Operation Report of Operation DATE OF PROCEDURE: 09/12/19 PREPROCEDURE DIAGNOSIS: Phimosis. POSTPROCEDURE DIAGNOSIS: Phimosis. OPERATIVE PROCEDURE: Circumcision. SURGEON: Geovanna Ramírez MD CERTIFIED PHYSICIAN ASSISTANT: None. ANESTHESIA: General. OPERATIVE INDICATIONS: This is a 64-year-old male with phimosis presenting to the operating room today for the above listed procedure. DESCRIPTION OF PROCEDURE: The patient was brought to the operating room and general endotracheal anesthesia was induced. Prophylactic antibiotics were infused. He was then placed in the supine position, and prepped and draped in the usual sterile fashion. At this point, circumcising incisions were made at the level of coronal sulcus with the foreskin completely pulled over the glans, and then also with the foreskin retracted down off of the glans. These circumcising incisions were then connected using electrocautery. All the foreskin between the circumcising incisions were then removed using electrocautery. Once that was done hemostasis was obtained using the coagulation current. Once satisfied with hemostasis, the skin on the penile shaft was reapproximated to the glans using interrupted #3-0 chromic sutures. Once that was done dressings were applied, including Tho and a Coban dressing, and marked the conclusion of the procedure. The patient was then awakened from anesthesia and transported to the recovery room in stable condition. ESTIMATED BLOOD LOSS: 10 mL. COMPLICATIONS: None. SPECIMENS: Foreskin. PLAN: The patient will followup in clinic in a approximately 2 weeks for a postoperative visit. GEOVANNA RAMÍREZ MD Sep 12, 2019 11:21
[2019-09-12] MEDS ORDERED: LR 1,000 ML IV SCH (11:30)
[2019-09-12] MEDS ORDERED: ONDANSETRON 4MG/2ML VIAL IV PRN (11:30)
[2019-09-12] MEDS ORDERED: PERCOCET 5MG/325MG TAB PO PRN ×2 (11:30)
[2019-09-12] MEDS ORDERED: fentaNYL 100 MCG/2 ML INJECTION (J3010) IV PRN (11:30)
[2019-09-12 11:55] VITALS: BP 150/70
== END 2019-09-12 12:48 | disposition home or self-care (01) ==
LOC: M SDC 08:42
PROVIDERS: ATTEND Urology
DX: N47.1 Phimosis (principal); I10 Essential (primary) hypertension; E11.9 Type 2 diabetes mellitus without complications; Z79.84 Long term (current) use of oral hypoglycemic drugs; Z79.899 Other long term (current) drug therapy; Z85.46 Personal history of malignant neoplasm of prostate
CPT/HCPCS: 54161; 88304; J0690; J2250; J2405; J2765; J3010

== ENCOUNTER → 2019-11-25 | Outpatient (CLI) | payer OTHER ==
[~2019-11-25] MED LIST changes: +FIOR1CAP PO; -LIDOCAINE 2% 100MG/5ML SDV (FOR ANES.) As Ordered ONE; -METOCLOPRAMIDE INJ 10MG/2ML VIAL (J2765 PER 1) As Ordered ONE; -MIDAZOLAM INJ 2MG/2ML VIAL (J2250 PER 1MG) As Ordered ONE; +NAPR-837 PO; -ONDANSETRON 4MG/2ML VIAL As Ordered ONE; -fentaNYL 100 MCG/2 ML INJECTION (J3010) As Ordered ONE; -propofoL 200 MG/20 ML VIAL As Ordered ONE
[2020-01-20 22:03] LABS: HEMOGLOBIN A1c 7.5 %
[2020-01-20 23:31] LABS: BLOOD UREA NITROGEN 13 MG/DL (7-18); CALCIUM LEVEL 9.8 MG/DL (8.8-10.2); CARBON DIOXIDE LEVEL 29 MEQ/L (21-32); CHLORIDE LEVEL 104 MEQ/L (98-107); CREATININE FOR GFR 0.93 MG/DL (0.70-1.30); GLOMERULAR FILTRATION RATE > 60.0 (>49); GLUCOSE, FASTING 182 MG/DL (70-100); POTASSIUM SERUM 4.2 MEQ/L (3.5-5.1); SODIUM LEVEL 139 MEQ/L (136-145)
[2020-01-20 23:32] LABS: ALBUMIN 3.6 GM/DL (3.2-5.2); ALT/SGPT 20 U/L (12-78); BILIRUBIN,DIRECT 0.1 MG/DL (0.0-0.2); BILIRUBIN,TOTAL 0.3 MG/DL (0.2-1.0); CHOLESTEROL LEVEL 198 MG/DL (<200); CHOLESTEROL RISK RATIO 6.187 (<5); CPK CREATINE PHOSPHOKINASE 44 U/L (39-308); HDL CHOLESTEROL 32 MG/DL (>40); NON-HDL-C 166 MG/DL; TOTAL PROTEIN 6.9 GM/DL (6.4-8.2); TRIGLYCERIDES LEVEL 507 MG/DL (<150)
== END ==
LOC: M LAB 10:53
PROVIDERS: ATTEND Internal Medicine
DX: E11.9 Type 2 diabetes mellitus without complications (principal); E78.2 Mixed hyperlipidemia

== ENCOUNTER 2019-12-30 12:51 | Emergency (ER) | payer OTHER ==
[~2019-12-30] VITALS: Ht 170.2 cm; Wt 101.8 kg
[~2019-12-30 12:51] MED LIST changes: -NAPR-837 PO
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
[2019-12-30] MEDS ORDERED: NAPR-837 PO (14:44)
[2019-12-30 14:48] VITALS: BP 137/72
== END 2019-12-30 14:50 | disposition home or self-care (01) ==
LOC: M ED 12:51
DX: S42.002A Fracture of unspecified part of left clavicle, initial encounter for closed fracture (principal); V49.40XA Driver injured in collision with unspecified motor vehicles in traffic accident, initial encounter; Y92.9 Unspecified place or not applicable; Y93.9 Activity, unspecified; Y99.9 Unspecified external cause status; M75.92 Shoulder lesion, unspecified, left shoulder; E11.9 Type 2 diabetes mellitus without complications; Z79.84 Long term (current) use of oral hypoglycemic drugs; Z79.899 Other long term (current) drug therapy

== ENCOUNTER → 2020-01-22 | Outpatient (CLI) | payer OTHER ==
[~2020-01-22] MED LIST changes: +NAPR-837 PO
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
== END ==
LOC: M RAD 07:37
PROVIDERS: ATTEND Internal Medicine
DX: S06.0X0A Concussion without loss of consciousness, initial encounter (principal); X58.XXXA Exposure to other specified factors, initial encounter; Y92.89 Other specified places as the place of occurrence of the external cause; Y93.9 Activity, unspecified; Y99.9 Unspecified external cause status

== ENCOUNTER → 2020-01-24 | Outpatient (CLI) | payer OTHER ==
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
== END ==
LOC: M RAD 06:32
PROVIDERS: ATTEND Internal Medicine
DX: S42.002A Fracture of unspecified part of left clavicle, initial encounter for closed fracture (principal); X58.XXXA Exposure to other specified factors, initial encounter; Y92.9 Unspecified place or not applicable; M47.812 Spondylosis without myelopathy or radiculopathy, cervical region; V87.9XXA Person injured in other specified (collision)(noncollision) transport accidents involving nonmotor vehicle (traffic), initial encounter

== ENCOUNTER → 2020-01-27 | Outpatient (CLI) | payer OTHER ==
--- NOTE | 2020-01-27 10:06 | REP ---
INDICATION: CONCUSSION, FRACTURE OF LEFT CLAVICLE. COMPARISON: 12/30/2027 x-ray TECHNIQUE: Coronal oblique T1 and fat suppressed T2. Sagittal oblique fat suppressed T2. Axial [id number] and T2 FLASH. FINDINGS: T2 hyper signal is seen within the acromioclavicular joint along with T2 hyper signal within the distal clavicle. The cortical margin of the distal clavicle is irregular. The acromion process is type 2 with a spur arising from the inferior surface of the acromion process at the acromioclavicular joint. Patchy T2 hyper signal is seen throughout the supraspinatus tendon without supraspinatus muscular 0 tendinous retraction. There is supraspinatus muscle atrophy. The biceps tendon resides within the bicipital groove. Slight linear hyper signal changes are seen in the superior labrum. There is no glenohumeral joint effusion. There is a tiny amount of fluid in the subcoracoid recess. There is no sravan cortical humeral or coracoacromial ligamentous thickening. There is a mixed signal proximal humeral intramedullary bone lesion. IMPRESSION: 1. Distal clavicle fracture with marrow edema and fluid within the AC joint. 2. Supraspinatus tendonitis/tendinosis with atrophy of the supraspinatus muscle. 3. Possible labral tear difficult to evaluate without shoulder MRI arthrography. 4. Proximal humeral enchondroma. 5. Other findings as described above. <Electronically signed by Haroon Thompson > 01/27/20 1002
== END ==
LOC: M RAD 07:35
PROVIDERS: ATTEND Internal Medicine
DX: S42.002A Fracture of unspecified part of left clavicle, initial encounter for closed fracture (principal); X58.XXXA Exposure to other specified factors, initial encounter; Y92.89 Other specified places as the place of occurrence of the external cause; Y93.9 Activity, unspecified; Y99.9 Unspecified external cause status

== ENCOUNTER → 2020-02-26 | Outpatient (CLI) | payer OTHER ==
[2020-02-26 11:30] LABS: BASO % 1.1 % (0.0-1.0); EOS # 0.1 10^3/uL (0.0-0.5); EOS % 3.2 % (0.0-3.0); HEMATOCRIT 36.5 % (42.0-52.0); HEMOGLOBIN 11.6 g/dl (13.5-17.5); LYMPH # 0.6 10^3/uL (1.5-5.0); LYMPH % 19.9 % (24.0-44.0); MEAN CORPUSCULAR HEMOGLOBIN 28.5 pg (27.0-33.0); MEAN CORPUSCULAR HGB CONC 31.8 g/dl (32.0-36.5); MEAN CORPUSCULAR VOLUME 89.7 fl (80.0-96.0); MONO # 0.2 10^3/uL (0.0-0.8); MONO % 8.2 % (0.0-5.0); NEUTROPHILS # 1.9 10^3/uL (1.5-8.5); NEUTROPHILS % 66.9 % (36.0-66.0); PLATELET COUNT, AUTOMATED 156 10^3/uL (150-450); RED BLOOD COUNT 4.07 10^6/uL (4.30-6.10); WHITE BLOOD COUNT 2.8 10^3/uL (4.0-10.0)
[2020-02-26 11:57] LABS: ALBUMIN 3.7 GM/DL (3.2-5.2); ALT/SGPT 24 U/L (12-78); BILIRUBIN,DIRECT 0.1 MG/DL (0.0-0.2); BILIRUBIN,TOTAL 0.7 MG/DL (0.2-1.0); BLOOD UREA NITROGEN 17 MG/DL (7-18); CALCIUM LEVEL 9.8 MG/DL (8.8-10.2); CARBON DIOXIDE LEVEL 28 MEQ/L (21-32); CHLORIDE LEVEL 103 MEQ/L (98-107); CREATININE FOR GFR 1.06 MG/DL (0.70-1.30); GLOMERULAR FILTRATION RATE > 60.0 (>49); GLUCOSE, FASTING 220 MG/DL (70-100); HEMOGLOBIN A1c 7.7 %; POTASSIUM SERUM 4.6 MEQ/L (3.5-5.1); SODIUM LEVEL 136 MEQ/L (136-145); TOTAL PROTEIN 6.9 GM/DL (6.4-8.2)
== END ==
LOC: M LAB 10:26
PROVIDERS: ATTEND Internal Medicine
DX: E11.9 Type 2 diabetes mellitus without complications (principal)

== ENCOUNTER → 2020-03-10 | Outpatient (CLI) | payer OTHER | LOC: M LAB 12:33 | PROVIDERS: ATTEND Urology | DX: C61 Malignant neoplasm of prostate (principal) ==

== ENCOUNTER → 2020-05-29 | Outpatient (CLI) | payer OTHER ==
[2020-05-29 11:19] LABS: HEMOGLOBIN A1c 7.5 %
[2020-05-29 11:25] LABS: BLOOD UREA NITROGEN 15 MG/DL (7-18); CALCIUM LEVEL 9.9 MG/DL (8.8-10.2); CARBON DIOXIDE LEVEL 32 MEQ/L (21-32); CHLORIDE LEVEL 101 MEQ/L (98-107); CHOLESTEROL LEVEL 205 MG/DL (<200); CHOLESTEROL RISK RATIO 5.694 (<5); CREATININE FOR GFR 0.98 MG/DL (0.70-1.30); GLOMERULAR FILTRATION RATE > 60.0 (>49); GLUCOSE, FASTING 175 MG/DL (70-100); HDL CHOLESTEROL 36 MG/DL (>40); NON-HDL-C 169 MG/DL; POTASSIUM SERUM 4.2 MEQ/L (3.5-5.1); SODIUM LEVEL 139 MEQ/L (136-145); TRIGLYCERIDES LEVEL 466 MG/DL (<150)
== END ==
LOC: M LAB 09:40
PROVIDERS: ATTEND Internal Medicine
DX: E11.9 Type 2 diabetes mellitus without complications (principal)

== ENCOUNTER → 2020-09-02 | Outpatient (CLI) | payer OTHER | LOC: M LAB 12:54 | PROVIDERS: ATTEND Urology | DX: C61 Malignant neoplasm of prostate (principal) ==

== ENCOUNTER → 2021-01-27 | Outpatient (REF) | payer OTHER ==
[~2021-01-27] MED LIST changes: +OMEP40CA4 PO; -OMEP40CA97 PO
[2021-01-27 18:06] LABS: APPEARANCE, URINE CLEAR (CLEAR); BACTERIA, URINE AUTO NEGATIVE (NEGATIVE); BILIRUBIN, URINE AUTO NEGATIVE (NEGATIVE); BLOOD, URINE BLOOD NEGATIVE (NEGATIVE); COLOR, URINE YELLOW (YELLOW); GLUCOSE, URINE (UA) AUTO 3+ mg/dL (NEGATIVE); KETONE, URINE AUTO NEGATIVE (NEGATIVE); LEUKOCYTE ESTERASE, URINE AUTO NEGATIVE (NEGATIVE); NITRITE, URINE AUTO NEGATIVE (NEGATIVE); PROTEIN, URINE AUTO NEGATIVE (NEGATIVE); RBC, URINE AUTO 0 /HPF (0-3); SPECIFIC GRAVITY URINE AUTO 1.027 (1.002-1.035); SQUAMOUS EPITHELIAL CELL UR AU 1 /HPF (0-6); UROBILINOGEN, URINE AUTO 0.2 mg/dL (0.0-2.0); WBC, URINE AUTO 1 /HPF (0-3)
== END ==
LOC: M SMT 16:47
PROVIDERS: ATTEND Urology
DX: R35.0 Frequency of micturition (principal)

== ENCOUNTER → 2021-03-10 | Outpatient (CLI) | payer OTHER | LOC: M LAB 11:03 | PROVIDERS: ATTEND Urology | DX: C61 Malignant neoplasm of prostate (principal) ==

== ENCOUNTER → 2021-09-22 | Outpatient (CLI) | payer OTHER, MEDICARE ==
[~2021-09-22] MED LIST changes: +EXCETAB32 PO; -EXCETAB33 PO
== END ==
LOC: M LAB 14:18
PROVIDERS: ATTEND Urology
DX: C61 Malignant neoplasm of prostate (principal)

== ENCOUNTER → 2022-03-14 | Outpatient (CLI) | payer MEDICARE | LOC: M LAB 11:44 | PROVIDERS: ATTEND Urology | DX: C61 Malignant neoplasm of prostate (principal) ==

== ENCOUNTER → 2022-10-13 | Outpatient (REF) | payer MEDICARE, OTHER, MEDICAID ==
[2022-10-13 17:36] LABS: APPEARANCE, URINE HAZY (CLEAR); BACTERIA, URINE AUTO NEGATIVE (NEGATIVE); BILIRUBIN, URINE AUTO NEGATIVE (NEGATIVE); BLOOD, URINE BLOOD NEGATIVE (NEGATIVE); COLOR, URINE YELLOW (YELLOW); GLUCOSE, URINE (UA) AUTO 3+ mg/dL (NEGATIVE); KETONE, URINE AUTO NEGATIVE (NEGATIVE); LEUKOCYTE ESTERASE, URINE AUTO NEGATIVE (NEGATIVE); MUCUS, URINE SMALL (NEGATIVE); NITRITE, URINE AUTO NEGATIVE (NEGATIVE); PROTEIN, URINE AUTO NEGATIVE (NEGATIVE); RBC, URINE AUTO 0 /HPF (0-3); SPECIFIC GRAVITY URINE AUTO 1.027 (1.002-1.035); SQUAMOUS EPITHELIAL CELL UR AU 1 /HPF (0-6); UROBILINOGEN, URINE AUTO 0.2 mg/dL (0.0-2.0); WBC, URINE AUTO 0 /HPF (0-3)
== END ==
LOC: M SMT 17:00
PROVIDERS: ATTEND Urology
DX: N32.81 Overactive bladder (principal); Z79.899 Other long term (current) drug therapy

== ENCOUNTER → 2022-11-21 | Outpatient (CLI) | payer MEDICARE, MEDICAID | LOC: M LAB 13:58 | PROVIDERS: ATTEND Urology | DX: C61 Malignant neoplasm of prostate (principal) ==

== ENCOUNTER → 2023-01-03 | Outpatient (REF) | payer MEDICARE, OTHER ==
[2023-01-03 17:21] LABS: APPEARANCE, URINE HAZY (CLEAR); BACTERIA, URINE AUTO NEGATIVE (NEGATIVE); BILIRUBIN, URINE AUTO NEGATIVE (NEGATIVE); BLOOD, URINE BLOOD NEGATIVE (NEGATIVE); COLOR, URINE YELLOW (YELLOW); GLUCOSE, URINE (UA) AUTO 3+ mg/dL (NEGATIVE); KETONE, URINE AUTO NEGATIVE (NEGATIVE); LEUKOCYTE ESTERASE, URINE AUTO 2+ (NEGATIVE); MUCUS, URINE SMALL (NEGATIVE); NITRITE, URINE AUTO POSITIVE (NEGATIVE); PROTEIN, URINE AUTO NEGATIVE (NEGATIVE); RBC, URINE AUTO 3 /HPF (0-3); SPECIFIC GRAVITY URINE AUTO 1.015 (1.002-1.035); SQUAMOUS EPITHELIAL CELL UR AU 0 /HPF (0-6); UROBILINOGEN, URINE AUTO 0.2 mg/dL (0.0-2.0); WBC, URINE AUTO 83 /HPF (0-3)
== END ==
LOC: M SMT 16:57
PROVIDERS: ATTEND Urology
DX: N39.0 Urinary tract infection, site not specified (principal)

== ENCOUNTER → 2023-05-23 | Outpatient (CLI) | payer MEDICARE, OTHER | LOC: M LAB 13:07 | PROVIDERS: ATTEND Urology | DX: C61 Malignant neoplasm of prostate (principal) ==

== ENCOUNTER → 2023-12-01 | Outpatient (CLI) | payer MEDICARE, MEDICAID | LOC: M LAB 11:39 | PROVIDERS: ATTEND Urology | DX: C61 Malignant neoplasm of prostate (principal) ==

== ENCOUNTER → 2024-05-21 | Outpatient (CLI) | payer MEDICARE, MEDICAID | LOC: M LAB 11:57 | PROVIDERS: ATTEND Urology | DX: C61 Malignant neoplasm of prostate (principal) ==

== ENCOUNTER → 2024-07-08 | Outpatient (CLI) | payer MEDICARE, MEDICAID | LOC: M RAD 13:40 | PROVIDERS: ATTEND Podiatrist Foot & Ankle Surgery | DX: I73.89 Other specified peripheral vascular diseases (principal) ==

== ENCOUNTER → 2024-11-12 | Outpatient (CLI) | payer MEDICARE, MEDICAID ==
[~2024-11-12] MED LIST changes: -FLOM0.4C39 PO; +TAMS-18 PO
== END ==
LOC: M LAB 13:15
PROVIDERS: ATTEND Urology
DX: C61 Malignant neoplasm of prostate (principal)

== ENCOUNTER → 2025-03-04 | Outpatient (CLI) | payer MEDICARE, MEDICAID ==
[2025-03-04 11:33] LABS: BASO # 0.1 10^3/uL (0.0-0.2); BASO % 1.3 % (0.0-1.0); EOS # 0.2 10^3/uL (0.0-0.5); EOS % 5.5 % (0.0-3.0); LYMPH # 0.9 10^3/uL (1.5-5.0); LYMPH % 24.5 % (24.0-44.0); MONO # 0.3 10^3/uL (0.0-0.8); MONO % 9.0 % (2.0-8.0); NEUTROPHILS # 2.2 10^3/uL (1.5-8.5); NEUTROPHILS % 59.2 % (36.0-66.0); PLATELET COUNT, AUTOMATED 228 10^3/uL (150-450)
[2025-03-04 11:59] LABS: IRON (FE) 69.0 UG/DL (65-175); PERCENT SATURATION 15.7 % (19.7-50.0)
== END ==
LOC: M LAB 10:32
PROVIDERS: ATTEND Nurse Practitioner Family
DX: N18.9 Chronic kidney disease, unspecified (principal); D63.8 Anemia in other chronic diseases classified elsewhere